=== PATIENT | male | born 1985 | race Caucasian/White ===

== ENCOUNTER 2016-08-28 11:05 | Emergency (ER) | payer OTHER ==
[2016-08-28] MEDS ORDERED: NO HOME MEDICATION XX (11:21)
== END 2016-08-28 12:43 ==
LOC: EDMED 11:05
PROC: 0HQJXZZ Repair Left Upper Leg Skin, External Approach (ICD-10-PCS; principal; 2016-08-28)
DX: S71.112A Laceration without foreign body, left thigh, initial encounter (principal); Z23 Encounter for immunization; F17.210 Nicotine dependence, cigarettes, uncomplicated; W27.5XXA Contact with paper-cutter, initial encounter; Y92.69 Other specified industrial and construction area as the place of occurrence of the external cause; Y99.0 Civilian activity done for income or pay